=== PATIENT | female | born 1930 | race Caucasian/White ===

== ENCOUNTER 2016-12-04 10:57 | Emergency (ER) | payer MEDICARE ==
[2016-12-04] MEDS ORDERED: Aspirin 81 MG Tab.Chew PO ONE (11:10)
[2016-12-04] MEDS ORDERED: Aspirin 81 MG Tab.Chew ONE (11:11)
--- NOTE | 2016-12-04 11:59 | EDM.PDOC ---
ED HPI GENERAL MEDICAL PROBLEM - General Chief Complaint: Chest Pain Stated Complaint: right arm pain Time Seen by Provider: 12/04/16 11:30 Source of Information: Reports: Patient History Limitations: Reports: No limitations - History of Present Illness INITIAL COMMENTS - FREE TEXT/NARRATIVE: PT STATES SHE WOKE THIS AM WITH PAIN AND NUMBNESS TO RIGHT UPPER EXTREMITY AND RIGHT AXILLA / LAT. ADMITS TO EXCESSIVE USE OF VACUUM LAST EVENING AT HOME. DENIES CP, SOB, BROWN, FACIAL NUMBNESS, N/V/D, FALLS, OR BLURRY VISION. Onset: today Duration: Hour(s): Location: Reports: upper extremity, right Quality: Reports: Ache, Burning Severity: mild Improves with: Reports: Rest Worsens with: Reports: Movement Context: Reports: Activity Associated Symptoms: Reports: no other symptoms. Denies: chest pain, fever/ chills, headaches, nausea/vomiting, shortness of breath, syncope, weakness - Related Data Allergies Allergy/AdvReac Type Severity Reaction Status Date / Time Penicillins Allergy Severe Hives Verified 12/04/16 11:30 Home Meds: Home Meds . [No Known Home Meds] 12/04/16 [History] Past Medical History HEENT History: Reports: Cataract, Hard of hearing, Impaired vision Cardiovascular History: Reports: Blood clots/VTE/DVT, Hypertension, SOB on exertion, Other (see below) Other Cardiovascular History: frequent DVT Respiratory History: Reports: SOB, Other (see below) Other Respiratory History: Ruuny nose and stuffiness due to allergies. Gastrointestinal History: Reports: Chronic constipation, GERD, Hemorrhoids Genitourinary History: Reports: Retention, urinary Musculoskeletal History: Reports: Other (see below) Other Musculoskeletal History: Left shoulder "rotator cuff" slight tear - old injury. 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 Last treated 4 years ago. - Past Surgical History HEENT Surgical History: Reports: Cataract surgery GI Surgical History: Reports: Appendectomy, Colonoscopy Social & Family History - Tobacco Use Smoking Status *Q: Never Smoker Second Hand Smoke Exposure: No - Alcohol Use Days Per Week of Alcohol Use: 0 - Recreational Drug Use Recreational Drug Use: No - Living Situation & Occupation Living situation: Reports: Occupation: retired ED ROS GENERAL - Review of Systems Review Of Systems: ROS reveals no pertinent complaints other than HPI. Constitutional: Reports: no symptoms HEENT: Reports: No symptoms Respiratory: Reports: No Symptoms Cardiovascular: Reports: No symptoms Endocrine: Reports: no symptoms GI/Abdominal: Reports: No symptoms : Reports: no symptoms Musculoskeletal: Reports: arm pain (RIGHT) Skin: Reports: no symptoms Neurological: Reports: No Symptoms. Denies: Dizziness, Headache, Difficulty Walking, Weakness Psychiatric: Reports: No symptoms Hematologic/Lymphatic: Reports: no symptoms Immunologic: Reports: no symptoms ED EXAM, GENERAL - Physical Exam Exam: See Below Exam Limited By: No limitations General Appearance: alert, WD/WN, no apparent distress Eye Exam: bilateral eye: normal inspection Nose: normal inspection, normal mucosa, no blood Throat/Mouth: Normal inspection, Normal oropharynx, No airway compromise Head: atraumatic, normocephalic Neck: normal inspection, supple, non-tender, full range of motion Respiratory/Chest: no respiratory distress, lungs clear, normal breath sounds, no accessory muscle use, chest non-tender Cardiovascular: regular rate, rhythm, no murmur, no rub Peripheral Pulses: 2+: radial (L), radial (R) GI/Abdominal: normal bowel sounds, soft, non tender, no organomegaly, no distention, no abnormal bruit, no mass Back Exam: normal inspection, full range of motion. No: CVA tenderness (L), CVA tenderness (R) Extremities: normal capillary refill, pedal edema (2+ BILAT OF CHRONIC NATURE) Neurological: alert, oriented, CN II-XII intact, normal cognition, no motor/ sensory deficits Psychiatric: normal affect, normal mood Skin Exam: Warm, Dry, Intact, Normal color, No rash Lymphatic: no adenopathy EKG INTERPRETATION EKG Date: 12/04/16 Time: 11:15 Rhythm: NSR [place]: normal P-wave: present QT: prolonged Course - Vital Signs Last Recorded V/S: Last Vital Signs Temp 99.4 F 12/04/16 11:29 Pulse 89 12/04/16 11:29 Resp 14 12/04/16 11:29 BP 131/72 12/04/16 11:29 Pulse Ox 96 12/04/16 11:29 - Orders/Labs/Meds Orders: Active Orders 24 hr Category Date Time Status EKG Documentation Completion [RC] ASDIRECTED Care 12/04/16 11:10 Active CXR [Chest 1V Frontal] [CR] Stat Exams 12/04/16 11:10 Taken COMPREHENSIVE METABOLIC PN,CMP [CHEM] Stat Lab 12/04/16 11:25 Received TROPONIN I [CHEM] Stat Lab 12/04/16 11:25 Received EKG 12 Lead [EK] Routine Ther 12/04/16 11:10 Ordered Labs: Laboratory Tests 12/04/16 Range/Units 11:25 WBC 4.9 L (5.0-10.0) 10^3/uL RBC 2.75 L (3.80-5.50) 10^6/uL Hgb 8.9 L (12.0-16.0) g/dL Hct 26.9 L (37.0-47.0) % MCV 97.7 H (82.0-92.0) fL MCH 32.2 H (27.0-31.0) pg MCHC 32.9 (32.0-36.0) g/dL RDW 15.7 H (11.5-14.5) % Plt Count 208 (150-300) 10^3/uL MPV 6.3 L (7.4-10.4) fL Neut % (Auto) 63.8 (50.0-70.0) % Lymph % (Auto) 27.3 (20.0-40.0) % [place] % (Auto) 7.6 (2.0-8.0) % Eos % (Auto) 0.8 L (1.0-3.0) % Baso % (Auto) 0.5 (0.0-1.0) % Neut # 3.2 (2.5-7.0) 10^3/uL Lymph # 1.3 (1.0-4.0) 10^3/uL [place] # 0.4 (0.1-0.8) 10^3/uL Eos # 0.0 L (0.1-0.3) 10^3/uL Baso # 0.0 (0.0-0.1) 10^3/uL Meds: Medications Discontinued Medications Generic Name Dose Route Start Last Admin Trade Name Andreas PRN Reason Stop Dose Admin Aspirin 324 mg 12/04/16 11:10 12/04/16 11:34 Aspirin PO 12/04/16 11:11 324 mg ONETIME ONE Administration Aspirin Confirm 12/04/16 11:11 12/04/16 11:34 Aspirin Administered 12/04/16 11:12 Not Given Dose 324 mg .ROUTE .STK-MED ONE - Re-Assessments/Exams Free Text/Narrative Re-Assessment/Exam: 12/04/16 12:25 PT AFEBRILE, NONTOXIC APPEARING, NO CP, SOB, BROWN WHILE IN ER. DISCUSSED CASE WITH DR SU. WILL D/C AND F/U IN CLINIC Departure - Departure Time of Disposition: 12:26 Disposition: Home, Self-Care 01 Condition: good Clinical Impression: Radicular pain in right arm Muscle strain of right upper extremity Qualifiers: Encounter type: initial encounter Qualified Code(s): S46.911A - Strain of unspecified muscle, fascia and tendon at shoulder and upper arm level, right arm , initial encounter Forms: ED Department Discharge Additional Instructions: REST / ICE / RECHECK AT CLINIC IN 2-3 DAYS - My Orders Last 24 Hours: My Active Orders 12/04/16 11:10 EKG Documentation Completion [RC] ASDIRECTED CXR [Chest 1V Frontal] [CR] Stat EKG 12 Lead [EK] Routine 12/04/16 11:25 COMPREHENSIVE METABOLIC PN,CMP [CHEM] Stat TROPONIN I [CHEM] Stat - Assessment/Plan Last 24 Hours: My Active Orders 12/04/16 11:10 EKG Documentation Completion [RC] ASDIRECTED CXR [Chest 1V Frontal] [CR] Stat EKG 12 Lead [EK] Routine 12/04/16 11:25 COMPREHENSIVE METABOLIC PN,CMP [CHEM] Stat TROPONIN I [CHEM] Stat Assessment:: RIGHT ARM PAIN / RADICULOPATHY FROM OVEREXERTION Plan: REST / ICE / RECHECK IN CLINIC IN 2 DAYS
[2016-12-04 12:02] LABS: CHLORIDE,CL 109 mmol/L (98-115); SODIUM,NA 144 mmol/L (136-145)
[2016-12-04 12:03] VITALS: BP 109/51
== END 2016-12-04 12:45 | disposition home or self-care (01) ==
LOC: KA.ED 10:57
DX: S46.911A Strain of unspecified muscle, fascia and tendon at shoulder and upper arm level, right arm, initial encounter (principal); E03.9 Hypothyroidism, unspecified; X58.XXXA Exposure to other specified factors, initial encounter; Z88.0 Allergy status to penicillin
CPT/HCPCS: 36415; 71010; 80053; 84484; 85025; 93005; 99283; 99284; A9270-GY

== ENCOUNTER 2017-09-12 15:15 | Inpatient (IN) | payer MEDICARE ==
[2017-09-12 15:47] LABS: CHLORIDE,CL 107 mmol/L (98-115); SODIUM,NA 139 mmol/L (136-145)
[2017-09-12] MEDS ORDERED: Atropine/Diphenoxylate 0.025-2.5 MG Tab PO PRN (17:55)
[2017-09-12] MEDS ORDERED: Sodium Chloride 0.9% 250 ML ONE (19:42)
[2017-09-12] MEDS ORDERED: Acetaminophen 325 MG Tab PO PRN (20:15)
[2017-09-12] MEDS: Latanoprost 0.005% Ophth Soln 2.5 ML Bottle EYEBOTH SCH (20:34)
[2017-09-12] MEDS: Dorzolamide/Timolol 2%-0.5% Ophth Soln 10 ML Bottle EYEBOTH SCH (21:00)
[2017-09-13] MEDS ORDERED: Sodium Chloride 0.9% 1,000 ML IV SCH (08:30)
--- NOTE | 2017-09-13 08:43 | PCM.PN ---
- General Info Date of Service: 09/13/17 Admission Dx/Problem (Free Text): Anemia, renal insufficiency, multiple myeloma - Review of Systems Systems Review Comment:: Sophie is seen today on observation rounds. She was admitted on 09/12/17 from clinic due to diarrhea and feeling dehydrated. BUn was 60, creatinine was 2.69 , Hemoglobin was 5.1. She states she had an incontinent stool at [facility] on the day of admission. She was given 2 units PRBC's and a 250 mL bolus of normal saline. This morning her labs shows a BUN still at 60 and a creatining of 2.74 , hemoglobin is 7.7. She states she has not had a bowel movement since she has been here. Sophie decided over a year ago so stop doing treatment for her multiple myeloma. Last labs we have for her were a BUN of 28 and a creatinine of 1.56 She does have a hx of renal insufficiency but she has not been seen since June of 2016 stating "I was just doing so well". She feels a lot better today. She is concerned about a cough that she has and that she has been slightly more SOB recently. - Patient Data Vitals - Most Recent: Last Vital Signs Temp 98.9 F 09/13/17 06:09 Pulse 73 09/13/17 06:09 Resp 18 09/13/17 06:09 BP 129/76 09/13/17 06:09 Pulse Ox 95 09/13/17 06:09 Weight - Most Recent: 120 lb I&O - Last 24 Hours: Intake & Output 09/12/17 09/13/17 09/13/17 22:59 06:59 14:59 Intake Total 532 510 Output Total 50 400 Balance 482 110 Lab Results Last 24 Hours: Laboratory Results - last 24 hr 09/12/17 09/12/17 09/12/17 Range/Units 15:23 15:23 15:23 WBC 5.3 (5.0-10.0) 10^3/uL RBC 1.54 L (3.80-5.50) 10^6/uL Hgb 5.1 L* (12.0-16.0) g/dL Hct 15.3 L* (37.0-47.0) % MCV 98.9 H (82.0-92.0) fL MCH 33.2 H (27.0-31.0) pg MCHC 33.5 (32.0-36.0) g/dL RDW 16.8 H (11.5-14.5) % Plt Count 210 (150-300) 10^3/uL MPV 6.6 L (7.4-10.4) fL Neut % (Auto) 73.9 H (50.0-70.0) % Lymph % (Auto) 18.1 L (20.0-40.0) % [place] % (Auto) 6.6 (2.0-8.0) % Eos % (Auto) 1.1 (1.0-3.0) % Baso % (Auto) 0.3 (0.0-1.0) % Neut # (Auto) 3.9 (2.5-7.0) 10^3/uL Lymph # (Auto) 1.0 (1.0-4.0) 10^3/uL [place] # (Auto) 0.3 (0.1-0.8) 10^3/uL Eos # (Auto) 0.1 (0.1-0.3) 10^3/uL Baso # (Auto) 0.0 (0.0-0.1) 10^3/uL Sodium 139 (136-145) mmol/L Potassium 4.9 (3.3-5.3) mmol/L Chloride 107 (98-115) mmol/L Carbon Dioxide 18.8 L (21.0-32.0) mmol/L BUN 60 H* (6-25) mg/dL Creatinine 2.69 H (0.51-1.17) mg/dL Est Cr Clr Drug Dosing TNP Estimated GFR (MDRD) 17 mL/min Glucose 100 (70-110) mg/dL Calcium 9.7 (8.7-10.3) mg/dL Total Bilirubin 1.2 H (0.2-1.0) mg/dL AST 17 (15-37) U/L ALT 12 (12-78) U/L Alkaline Phosphatase 140 H (46-116) IU/L Total Protein 7.1 (6.4-8.2) g/dL Albumin 3.65 (3.00-4.80) g/dL Specimen Type Urine Color (YELLOW) Urine Appearance (CLEAR) Urine pH (5.0-9.0) Ur Specific [place] (1.005-1.030) Urine Protein (NEGATIVE) mg/dL Urine Glucose (UA) (NEGATIVE) mg/dL Urine Ketones (NEGATIVE) mg/dL Urine Occult Blood (NEGATIVE) Urine Nitrite (NEGATIVE) Urine Bilirubin (NEGATIVE) Urine Urobilinogen (0.2-1.0) E.U./dL Ur Leukocyte Esterase (NEGATIVE) Urine RBC /HPF Urine WBC /HPF Ur Epithelial Cells /LPF Urine Bacteria (NONE TO FEW) /HPF Blood Type A POSITIVE Gel Antibody Screen Negative Crossmatch See Detail 09/12/17 09/13/17 09/13/17 Range/Units 15:50 07:10 07:10 WBC 4.5 L (5.0-10.0) 10^3/uL RBC 2.56 L (3.80-5.50) 10^6/uL Hgb 7.7 L (12.0-16.0) g/dL Hct 23.7 L (37.0-47.0) % MCV 92.6 H (82.0-92.0) fL MCH 30.0 (27.0-31.0) pg MCHC 32.4 (32.0-36.0) g/dL RDW 16.6 H (11.5-14.5) % Plt Count 187 (150-300) 10^3/uL MPV 7.1 L (7.4-10.4) fL Neut % (Auto) 79.9 H (50.0-70.0) % Lymph % (Auto) 13.1 L (20.0-40.0) % [place] % (Auto) 5.5 (2.0-8.0) % Eos % (Auto) 1.2 (1.0-3.0) % Baso % (Auto) 0.3 (0.0-1.0) % Neut # (Auto) 3.6 (2.5-7.0) 10^3/uL Lymph # (Auto) 0.6 L (1.0-4.0) 10^3/uL [place] # (Auto) 0.2 (0.1-0.8) 10^3/uL Eos # (Auto) 0.1 (0.1-0.3) 10^3/uL Baso # (Auto) 0.0 (0.0-0.1) 10^3/uL Sodium 138 (136-145) mmol/L Potassium 4.2 (3.3-5.3) mmol/L Chloride 106 (98-115) mmol/L Carbon Dioxide 20.3 L (21.0-32.0) mmol/L BUN 60 H* (6-25) mg/dL Creatinine 2.74 H (0.51-1.17) mg/dL Est Cr Clr Drug Dosing 10.19 Estimated GFR (MDRD) 16 mL/min Glucose 95 (70-110) mg/dL Calcium 8.9 (8.7-10.3) mg/dL Total Bilirubin 1.3 H (0.2-1.0) mg/dL AST 12 L (15-37) U/L ALT 13 (12-78) U/L Alkaline Phosphatase 129 H (46-116) IU/L Total Protein 6.3 L (6.4-8.2) g/dL Albumin 3.15 (3.00-4.80) g/dL Specimen Type Urinvoid Urine Color Yellow (YELLOW) Urine Appearance Slightly cloudy H (CLEAR) Urine pH 5.5 (5.0-9.0) Ur Specific [place] 1.015 (1.005-1.030) Urine Protein 100 H (NEGATIVE) mg/dL Urine Glucose (UA) Negative (NEGATIVE) mg/dL Urine Ketones Negative (NEGATIVE) mg/dL Urine Occult Blood Small H (NEGATIVE) Urine Nitrite Negative (NEGATIVE) Urine Bilirubin Negative (NEGATIVE) Urine Urobilinogen 0.2 (0.2-1.0) E.U./dL Ur Leukocyte Esterase Moderate H (NEGATIVE) Urine RBC 5-10 H /HPF Urine WBC >100 H /HPF Ur Epithelial Cells Few /LPF Urine Bacteria Many H (NONE TO FEW) /HPF Blood Type Gel Antibody Screen Crossmatch Med Orders - Current: Current Medications Acetaminophen (Tylenol) 650 mg PO Q4H PRN PRN Reason: Pain Last Admin: 09/12/17 20:32 Dose: 650 mg Diphenoxylate HCl/Atropine (Lomotil 0.025-2.5 Mg) 1 tab PO QID PRN PRN Reason: Diarrhea Dorzolamide/Timolol (Cosopt 2%-0.5% Ophth Soln) 0 ml EYEBOTH BID RAUL Last Admin: 09/12/17 21:00 Dose: Not Given Ciprofloxacin/Dextrose 200 mg/ (Premix) 100 mls @ 200 mls/hr IV Q12H RAUL Sodium Chloride (Normal Saline) 1,000 mls @ 100 mls/hr IV ASDIRECTED [facility] Latanoprost (Xalatan 0.005% Ophth Soln) 0 ml EYEBOTH BEDTIME [facility] Last Admin: 09/12/17 20:34 Dose: 1 drop Discontinued Medications Sodium Chloride (Normal Saline) Confirm Administered Dose 250 mls @ as directed .ROUTE .STK-MED ONE Stop: 09/12/17 19:43 Last Admin: 09/12/17 20:15 Dose: 250 ml - Exam General: Alert, Oriented, Cooperative, No Acute Distress Lungs: Clear to Auscultation, Normal Respiratory Effort GI/Abdominal Exam: Normal Bowel Sounds Extremities: Normal Inspection - Problem List & Annotations (1) Anemia SNOMED Code(s): 519494159 Code(s): D64.9 - ANEMIA, UNSPECIFIED Status: Acute Current Visit: Yes Qualifiers: Anemia type: bone marrow failure (2) Chronic kidney disease SNOMED Code(s): 616300147 Code(s): N18.9 - CHRONIC KIDNEY DISEASE, UNSPECIFIED Status: Chronic Current Visit: No (3) Multiple myeloma SNOMED Code(s): 186251717 Code(s): C90.00 - MULTIPLE MYELOMA NOT HAVING ACHIEVED REMISSION Status: Chronic Current Visit: No - Problem List Review Problem List Initiated/Reviewed/Updated: Yes - My Orders Last 24 Hours: My Active Orders 09/12/17 20:15 Acetaminophen [Tylenol] 650 mg PO Q4H PRN 09/13/17 08:23 CULTURE URINE [RM] Routine 09/13/17 08:24 Admission Status [Patient Status] [ADT] Routine 09/13/17 08:30 Ciprofloxacin in D5W [Cipro in D5W 400 MG/200 ML] 200 mg Premix Bag 1 bag IV Q12H Sodium Chloride 0.9% @ 100 MLS/HR(1,000ml) Sodium Chloride 0.9% [Normal Saline] 1,000 ml IV ASDIRECTED - Assessment Assessment:: Anemia CKD UTI Multiple Myeloma Cough - Plan Plan:: Anemia. Improved following PRBC transfusion on 09/12. Daily labs. CKD. IVF's at 100 cc per hour, daily labs. 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 Daily labs. She has declined any treatment for her multiple myeloma. She states she would not do dialysis. UTI. Urine culture ordered today, will start ciprofloxacin 200 mg IM q 12 hours. Multiple Myeloma. No intervention per patient wishes. Cough. CXR today. Lungs clear on auscultation. I did switch her to inpatient status today.
[2017-09-13] MEDS: Ciprofloxacin in D5W 200 MG in Premix Bag 1 BAG IV SCH ×2 (09:31)
[2017-09-13] MEDS: Dorzolamide/Timolol 2%-0.5% Ophth Soln 10 ML Bottle EYEBOTH SCH ×2 (09:34→20:53)
[2017-09-13] MEDS: Latanoprost 0.005% Ophth Soln 2.5 ML Bottle EYEBOTH SCH (20:56)
[2017-09-14 06:09] VITALS: BP 113/67
[2017-09-14] MEDS: Dorzolamide/Timolol 2%-0.5% Ophth Soln 10 ML Bottle EYEBOTH SCH (09:29)
[2017-09-14] MEDS: Ciprofloxacin in D5W 200 MG in Premix Bag 1 BAG IV SCH ×2 (09:29)
--- NOTE | 2017-09-14 10:26 | PCM.DCSUM1 ---
Discharge Summary - Hospital Course HPI Initial Comments: Sophie was admitted on 09/12/17 from clinic due to diarrhea and feeling dehydrated. BUn was 60, creatinine was 2.69, Hemoglobin was 5.1. She states she had an incontinent stool at [employer] on the day of admission. She was given 2 units PRBC's and a 250 mL bolus of normal saline. Sophie remained hospitalized due to no improvement in her renal function. Sophie received 1 L NS and Cr today improved to 2.5. Sophie is being treated for UTI awaiting cultures, but due to previous cultures being cipro resistant UTI, i will change her antibiotic to septra DS BID x 10 days. Sophie decided over a year ago so stop doing treatment for her multiple myeloma. Last labs we have for her were a BUN of 28 and a creatinine of 1.56 She does have a hx of renal insufficiency but she has not been seen since June of 2016 stating "I was just doing so well". She feels a lot better today. Pt to follow up for repeat lab work next week in clinic. - Discharge Data Discharge Date: 09/14/17 Discharge Disposition: Home, Self-Care 01 Condition: Good - Discharge Diagnosis/Problem(s) (1) Anemia SNOMED Code(s): 289967361 ICD Code: D64.9 - ANEMIA, UNSPECIFIED Status: Acute Current Visit: Yes Qualifiers: Anemia type: bone marrow failure (2) Chronic kidney disease SNOMED Code(s): 041696983 ICD Code: N18.9 - CHRONIC KIDNEY DISEASE, UNSPECIFIED Status: Chronic Current Visit: No - Patient Instructions Diet: Renal Diet Activity: As Tolerated Showering/Bathing: January Shower Notify Provider of: Fever - Discharge Plan Prescriptions/Med Rec: Sulfamethoxazole/Trimethoprim [Septra DS] 1 tab PO BID #20 tablet Home Medications: Home Meds Dorzolamide HCl/Timolol Maleat [Dorzolamide-Timolol Eye Drops] 1 drop EYEBOTH BID 09/12/17 [History] Latanoprost [Latanoprost] 1 drop EYEBOTH BEDTIME 09/12/17 [History] Sulfamethoxazole/Trimethoprim [Septra DS] 1 tab PO BID #20 tablet 09/14/17 [Rx] Referrals: Ashanti Torres MD [Primary Care Provider] - - Discharge Summary/Plan Comment DC Time >30 min.: No Discharge Summary/Plan Comment: 1. septra DS PO BID x 10 days for UTI 2. push oral fluids for CKD 3. follow up in clinic this week for recheck of labs and follow up- Anemia/BUN/ Cr 4. return to ER for worsening symptoms - General Info Date of Service: 09/14/17 Admission Dx/Problem (Free Text: Anemia, renal insufficiency, multiple myeloma Functional Status: Reports: Pain Controlled - Review of Systems General: Reports: No Symptoms HEENT: Reports: No Symptoms Pulmonary: Reports: No Symptoms Cardiovascular: Reports: No Symptoms Gastrointestinal: Reports: No Symptoms Genitourinary: Reports: No Symptoms Musculoskeletal: Reports: No Symptoms Skin: Reports: No Symptoms Neurological: Reports: No Symptoms Psychiatric: Reports: No Symptoms - Patient Data Vitals - Most Recent: Last Vital Signs Temp 36.9 C 09/14/17 06:08 Pulse 75 09/14/17 06:08 Resp 20 09/14/17 06:08 BP 113/67 09/14/17 06:08 Pulse Ox 96 09/14/17 06:08 Weight - Most Recent: 54.34 kg I&O - Last 24 hours: Intake & Output 09/13/17 09/14/17 09/14/17 22:59 06:59 14:59 Intake Total 1090 0 130 Output Total 800 800 Balance 290 -800 130 Lab Results - Last 24 hrs: Laboratory Results - last 24 hr 09/14/17 09/14/17 Range/Units 07:04 07:04 WBC 4.8 L (5.0-10.0) 10^3/uL RBC 2.56 L (3.80-5.50) 10^6/uL Hgb 7.7 L (12.0-16.0) g/dL Hct 24.1 L (37.0-47.0) % MCV 94.0 H (82.0-92.0) fL MCH 30.1 (27.0-31.0) pg MCHC 32.0 (32.0-36.0) g/dL RDW 16.5 H (11.5-14.5) % Plt Count 164 (150-300) 10^3/uL MPV 6.9 L (7.4-10.4) fL Neut % (Auto) 73.9 H (50.0-70.0) % Lymph % (Auto) 19.0 L (20.0-40.0) % [place] % (Auto) 5.9 (2.0-8.0) % Eos % (Auto) 1.0 (1.0-3.0) % Baso % (Auto) 0.2 (0.0-1.0) % Neut # (Auto) 3.6 (2.5-7.0) 10^3/uL Lymph # (Auto) 0.9 L (1.0-4.0) 10^3/uL [place] # (Auto) 0.3 (0.1-0.8) 10^3/uL Eos # (Auto) 0.0 L (0.1-0.3) 10^3/uL Baso # (Auto) 0.0 (0.0-0.1) 10^3/uL Sodium 140 (136-145) mmol/L Potassium 4.0 (3.3-5.3) mmol/L Chloride 107 (98-115) mmol/L Carbon Dioxide 18.6 L (21.0-32.0) mmol/L BUN 49 H (6-25) mg/dL Creatinine 2.53 H (0.51-1.17) mg/dL Est Cr Clr Drug Dosing 11.04 mL/min Estimated GFR (MDRD) 18 mL/min Glucose 96 (70-110) mg/dL Calcium 8.8 (8.7-10.3) mg/dL B-Natriuretic Peptide 294 H (0-100) pg/mL [id number] Results - Last 24 hrs: Microbiology 09/12/17 15:50 Urine Culture - Preliminary Urine, Voided Med Orders - Current: Current Medications Acetaminophen (Tylenol) 650 mg PO Q4H PRN PRN Reason: Pain Last Admin: 09/12/17 20:32 Dose: 650 mg Diphenoxylate HCl/Atropine (Lomotil 0.025-2.5 Mg) 1 tab PO QID PRN PRN Reason: Diarrhea Dorzolamide/Timolol (Cosopt 2%-0.5% Ophth Soln) 0 ml EYEBOTH BID [facility] Last Admin: 09/14/17 09:29 Dose: 1 drop Ciprofloxacin/Dextrose 200 mg/ (Premix) 100 mls @ 200 mls/hr IV Q24H [facility] Last Admin: 09/14/17 09:29 Dose: 200 mls/hr Latanoprost (Xalatan 0.005% Ophth Soln) 0 ml EYEBOTH BEDTIME [facility] Last Admin: 09/13/17 20:56 Dose: 1 drop Discontinued Medications Sodium Chloride (Normal Saline) Confirm Administered Dose 250 mls @ as directed .ROUTE .STK-MED ONE Stop: 09/12/17 19:43 Last Admin: 09/12/17 20:15 Dose: 250 ml Sodium Chloride (Normal Saline) 1,000 mls @ 100 mls/hr IV ASDIRECTED [facility] Stop: 09/13/17 19:30 Last Admin: 09/13/17 09:27 Dose: 100 mls/hr - Exam General: Reports: Alert, Oriented HEENT: Reports: Pupils Equal, Pupils Reactive, EOMI, Mucous Membr. Moist/[place] Neck: Reports: Supple Lungs: Reports: Clear to Auscultation, Normal Respiratory Effort Cardiovascular: Reports: Regular Rate, Regular Rhythm GI/Abdominal Exam: Normal Bowel Sounds, Soft, Non-Tender, No Organomegaly, No Distention, No Abnormal Bruit, No Mass, Pelvis Stable Back Exam: Reports: Normal Inspection, Full Range of Motion Extremities: Normal Inspection, Normal Range of Motion, Non-Tender, No Pedal Edema, Normal Capillary Refill Skin: Reports: Warm, Dry, Intact Wound/Incisions: Reports: Healing Well Neurological: Reports: No New Focal Deficit Psy/Mental Status: Reports: Alert, Normal Affect, Normal Mood *Q Meaningful Use (DIS) - VTE *Q VTE Criteria *Q: - Stroke *Q Stroke Criteria *Q: - AMI *Q AMI Criteria *Q:
== END 2017-09-14 11:00 | disposition home or self-care (01) | DRG 392 ==
LOC: KA.OC 15:15 → KA.MS 16:00 → OBSVTOIN 09-13 08:24
PROVIDERS: ATTEND Internal Medicine
DX: R53.1 Weakness (principal); R19.7 Diarrhea, unspecified; N39.0 Urinary tract infection, site not specified; N28.9 Disorder of kidney and ureter, unspecified; C90.00 Multiple myeloma not having achieved remission; E86.0 Dehydration; N18.9 Chronic kidney disease, unspecified; D64.9 Anemia, unspecified; R05 Cough; Z88.0 Allergy status to penicillin; Z79.899 Other long term (current) drug therapy; Z87.891 Personal history of nicotine dependence
CPT/HCPCS: 36415 ×2; 36430; 80053 ×2; 81001; 85025 ×2; 86850; 86900; 86901; 86920; 86922; A9270 ×2; J7050; P9016 ×2; 71020; 80048; 83880; 87086; 87088; 87186; G0378; G0379; J0744; J7030

== ENCOUNTER 2017-11-17 12:42 | Emergency (ER) | payer MEDICARE ==
[2017-11-17] MEDS ORDERED: Ketorolac 30 MG/ML SDV IM ONE (13:03)
[2017-11-17] MEDS ORDERED: Acetaminophen/HYDROcodone 325-5 MG Tab PO ONE ×3 (13:03→15:10)
--- NOTE | 2017-11-17 13:28 | EDM.PDOC ---
ED HPI GENERAL MEDICAL PROBLEM - General Chief Complaint: Back Pain or Injury Stated Complaint: BACK PAIN Time Seen by Provider: 11/17/17 13:02 Source of Information: Reports: Patient History Limitations: Reports: No Limitations - History of Present Illness INITIAL COMMENTS - FREE TEXT/NARRATIVE: PATIENT IS AN 87-YEAR-OLD FEMALE WHO PRESENTS TO THE EMERGENCY DEPARTMENT THIS AFTERNOON WITH COMPLAINT OF BACK PAIN. PATIENT STATES THAT BACK PAIN BEGAN ON AND WAS INITIALLY ISOLATED TO LOW BACK. SHE STATES IT BEGAN WHILE SHE WAS IN A SEATED POSITION AND DENIES ANY FALL, OVEREXERTION, OR TRAUMA. PAIN PROGRESSED DAILY AND NOW PAIN CONTINUES UP INTO UPPER BACK AND NECK. PATIENT DID HAVE A UTI 3 WEEKS AGO AND WAS ON ANTIBIOTICS. PATIENT DENIES CHEST PAIN, SHORTNESS OF BREATH, HEADACHE, ABDOMINAL PAIN, DYSURIA, PAIN RADIATING TO LOWER EXTREMITIES, OR UPPER RESPIRATORY SYMPTOMS. Onset: Gradual Onset Date: 11/14/17 Duration: Day(s): Location: Reports: Back (INITIALLY STARTED LOWER BACK AND NOW PROGRESSING TO MID UPPER BACK.) Quality: Reports: Ache, Sharp Severity: Moderate Improves with: Reports: None Worsens with: Reports: Movement Context: Reports: Other. Denies: Trauma Associated Symptoms: Reports: No Other Symptoms. Denies: Chest Pain, Cough, Fever/Chills, Headaches, Nausea/Vomiting, Shortness of Breath - Related Data Allergies Allergy/AdvReac Type Severity Reaction Status Date / Time Penicillins Allergy Severe Hives Verified 11/17/17 13:08 Home Meds: Home Meds Dorzolamide HCl/Timolol Maleat [Dorzolamide-Timolol Eye Drops] 1 drop EYEBOTH BID 09/12/17 [History] Latanoprost [Latanoprost] 1 drop EYEBOTH BEDTIME 09/12/17 [History] Past Medical History HEENT History: Reports: Cataract, Hard of Hearing, Impaired Vision Cardiovascular History: Reports: Blood Clots/VTE/DVT, Hypertension, SOB on Exertion, Other (See Below) Other Cardiovascular History: frequent DVT Respiratory History: Reports: SOB, Other (See Below) Other Respiratory History: Ruuny nose and stuffiness due to allergies. Gastrointestinal History: Reports: Chronic Constipation, Diverticulosis, GERD, Hemorrhoids Genitourinary History: Reports: Retention, Urinary Musculoskeletal History: Reports: Back Pain, Chronic, Fibromyalgia Other Musculoskeletal History: Left shoulder "rotator cuff" slight tear - old injury. 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, bilaterally Neurological History: Reports: Neuropathy, Peripheral, Other (See Below) Other Neuro History: idiopathic tremors Psychiatric History: Reports: Depression Endocrine/Metabolic History: Reports: Hypothyroidism Hematologic History: Reports: Anemia, Anticoagulation Therapy, Blood Transfusion (s) Oncologic (Cancer) History: Reports: Basal Cell Carcinoma, Other (See Below) Other Oncologic History: multiple myeloma Dermatologic History: Reports: Other (See Below) Other Dermatologic History: face lesions - Infectious Disease History Infectious Disease History: Reports: Influenza, Measles - Past Surgical History HEENT Surgical History: Reports: Cataract Surgery Oncologic Surgical History: Reports: Other (See Below) Other Oncologic Surgeries/Procedures: spinal tap Social & Family History - Tobacco Use Smoking Status *Q: Never Smoker Second Hand Smoke Exposure: No - Caffeine Use Caffeine Use: Reports: Coffee, Tea - Alcohol Use Days Per Week of Alcohol Use: 0 - Recreational Drug Use Recreational Drug Use: No - Living Situation & Occupation Living situation: Reports: Occupation: Retired ED ROS GENERAL - Review of Systems Review Of Systems: ROS reveals no pertinent complaints other than HPI. Constitutional: Reports: No Symptoms. Denies: Fever HEENT: Reports: No Symptoms Respiratory: Reports: No Symptoms. Denies: Shortness of Breath Cardiovascular: Reports: No Symptoms. Denies: Chest Pain Endocrine: Reports: No Symptoms GI/Abdominal: Reports: No Symptoms. Denies: Abdominal Pain : Reports: No Symptoms Musculoskeletal: Reports: Back Pain. Denies: Leg Pain Skin: Reports: No Symptoms Neurological: Reports: No Symptoms Psychiatric: Reports: No Symptoms Hematologic/Lymphatic: Reports: No Symptoms Immunologic: Reports: No Symptoms ED EXAM,LOWER BACK PAIN/INJURY - Physical Exam Exam: See Below Exam Limited By: No Limitations General Appearance: Alert, WD/WN Eye Exam: Bilateral Eye: Normal Inspection Nose: Normal Inspection, Normal Mucosa, No Blood Throat/Mouth: Normal Inspection, Normal Oropharynx, No Airway Compromise Head: Atraumatic, Normocephalic Neck: Normal Inspection, Supple, Limited Range of Motion (SECONDARY TO DISCOMFORT) Respiratory/Chest: No Respiratory Distress, Lungs Clear, Normal Breath Sounds, No Accessory Muscle Use, Chest Non-Tender Cardiovascular: Regular Rate, Rhythm, No Murmur GI/Abdominal: Normal Bowel Sounds, Soft, Non-Tender, No Organomegaly, No Distention, No Abnormal Bruit, No Mass. No: Tender Back Exam: Paraspinal Tenderness (LOW BACK, EXTENDING UP TO MID BACK). No: CVA Tenderness (L), CVA Tenderness (R), Vertebral Tenderness Extremities: Normal Inspection, No Pedal Edema, Normal Capillary Refill Neurological: Alert, Normal Dorsiflexion, Oriented x 3 Psychiatric: Normal Affect, Normal Mood Skin Exam: Warm, Dry, Intact, Normal Color, No Rash Course - Orders/Labs/Meds Orders: Active Orders 24 hr Category Date Time Status Chest 1V Frontal [CR] Stat Exams 11/17/17 13:03 Ordered UA W/MICROSCOPIC [URIN] Stat Lab 11/17/17 13:03 Ordered Meds: Medications Discontinued Medications Generic Name Dose Route Start Last Admin Trade Name Ryanq PRN Reason Stop Dose Admin Hydrocodone Bitart/Acetaminophen 1 tab 11/17/17 13:03 11/17/17 13:12 [place] 325-5 Mg PO 11/17/17 13:04 1 tab ONETIME ONE Administration Ketorolac Tromethamine 30 mg 11/17/17 13:03 11/17/17 13:13 Toradol IM 11/17/17 13:04 30 mg ONETIME ONE Administration - Radiology Interpretation Free Text/Narrative:: Chest x-ray shows no acute cardiopulmonary process - Re-Assessments/Exams Free Text/Narrative Re-Assessment/Exam: 11/17/17 15:02 Patient afebrile, nontoxic appearing, vital signs stable, pain relieved. at bedside. Patient denies chest pain, shortness of breath, abdominal pain, headache, or radiation to legs. Departure - Departure Time of Disposition: 15:04 Disposition: Home, Self-Care 01 Condition: Good Clinical Impression: Back pain Qualifiers: Back pain location: low back pain Chronicity: chronic Back pain laterality: bilateral Sciatica presence: without sciatica Qualified Code(s): M54.5 - Low back pain; G89.29 - Other chronic pain; G89.29 - Other chronic pain - Discharge Information Instructions: Muscle Strain, [id number], Back Pain, Adult, [id number], Pain Medicine Instructions, [id number] Referrals: Ashanti Torres MD [Primary Care Provider] - Forms: ED Department Discharge Additional Instructions: Follow-up with Dr. Ocasio in one to 2 days. - My Orders Last 24 Hours: My Active Orders 11/17/17 13:03 Chest 1V Frontal [CR] Stat UA W/MICROSCOPIC [URIN] Stat - Assessment/Plan Last 24 Hours: My Active Orders 11/17/17 13:03 Chest 1V Frontal [CR] Stat UA W/MICROSCOPIC [URIN] Stat Assessment:: Back pain, muscle strain Plan: Follow-up at [facility]
[2017-11-17] MEDS ORDERED: Acetaminophen/HYDROcodone 325-5 MG Tab ONE (14:53)
[2017-11-17 17:51] VITALS: BP 129/78
== END 2017-11-17 15:15 | disposition home or self-care (01) ==
LOC: KA.ED 12:42
DX: S39.012A Strain of muscle, fascia and tendon of lower back, initial encounter (principal); I10 Essential (primary) hypertension; G89.29 Other chronic pain; Z88.0 Allergy status to penicillin; X58.XXXA Exposure to other specified factors, initial encounter
CPT/HCPCS: 71045; 81001; 96372; 99283; A9270-GY; J1885

== ENCOUNTER 2017-11-18 09:15 | Inpatient (IN) | payer MEDICARE ==
[2017-11-18] MEDS ORDERED: Acetaminophen/HYDROcodone 325-5 MG Tab PO ONE (10:36)
--- NOTE | 2017-11-18 10:48 | EDM.PDOC ---
ED HPI GENERAL MEDICAL PROBLEM - General Chief Complaint: Back Pain or Injury Stated Complaint: sdifficulty breathing Time Seen by Provider: 11/18/17 10:35 Source of Information: Reports: Patient History Limitations: Reports: No Limitations - History of Present Illness INITIAL COMMENTS - FREE TEXT/NARRATIVE: Patient is an 87-year-old female who presents to the emergency department this morning with a complaint of upper back pain. Patient was seen in the emergency Department yesterday for same symptoms. Symptoms did resolve while in ER following pain medication. Chest x-ray taken yesterday showed no cardiopulmonary process. Patient states that pain has diminished elsewhere, but now is located in left upper back only. Patient says that when she takes a deep breath it does hurt. Patient denies chest pain, abdominal pain, nausea, vomiting, diarrhea, headache, or any trauma. Onset: Gradual Duration: Chronic Location: Reports: Back Quality: Reports: Sharp Severity: Moderate Improves with: Reports: Medication Worsens with: Reports: Movement Context: Denies: Activity, Exercise, Lifting, Sick Contact, Trauma Associated Symptoms: Reports: No Other Symptoms Treatments DIRECTOR ORANGE: Reports: Other Medication(s) Other Treatments DIRECTOR ORANGE: hydrocodone Left Posterior Chest Pain Score (Numeric/FACES): 7 - Related Data Allergies Allergy/AdvReac Type Severity Reaction Status Date / Time Penicillins Allergy Severe Hives Verified 11/18/17 09:44 Home Meds: Home Meds Dorzolamide HCl/Timolol Maleat [Dorzolamide-Timolol Eye Drops] 1 drop EYEBOTH BID 09/12/17 [History] Latanoprost [Latanoprost] 1 drop EYEBOTH BEDTIME 09/12/17 [History] Hydrocodone/Acetaminophen [Hydrocodon-Acetaminophen 5-325] 5 mg PO Q6H PRN 11/18 [History] Past Medical History HEENT History: Reports: Cataract, Hard of Hearing, Impaired Vision Cardiovascular History: Reports: Blood Clots/VTE/DVT, Hypertension, SOB on Exertion, Other (See Below) Other Cardiovascular History: frequent DVT Respiratory History: Reports: SOB, Other (See Below) Other Respiratory History: Ruuny nose and stuffiness due to allergies. Gastrointestinal History: Reports: Chronic Constipation, Diverticulosis, GERD, Hemorrhoids Genitourinary History: Reports: Retention, Urinary [employer] History: Reports: Musculoskeletal History: Reports: Back Pain, Chronic, Fibromyalgia Other Musculoskeletal History: Left shoulder "rotator cuff" slight tear - old injury. 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, bilaterally Neurological History: Reports: Neuropathy, Peripheral, Other (See Below) Other Neuro History: idiopathic tremors Psychiatric History: Reports: Depression Endocrine/Metabolic History: Reports: Hypothyroidism Hematologic History: Reports: Anemia, Anticoagulation Therapy, Blood Transfusion (s) Oncologic (Cancer) History: Reports: Basal Cell Carcinoma, Other (See Below) Other Oncologic History: multiple myeloma Dermatologic History: Reports: Other (See Below) Other Dermatologic History: face lesions - Infectious Disease History Infectious Disease History: Reports: Measles, Mumps - Past Surgical History HEENT Surgical History: Reports: Cataract Surgery Oncologic Surgical History: Reports: Other (See Below) Other Oncologic Surgeries/Procedures: spinal tap Social & Family History - Family History Family Medical History: Noncontributory - Tobacco Use Smoking Status *Q: Never Smoker Second Hand Smoke Exposure: No - Caffeine Use Caffeine Use: Reports: Coffee, Tea - Alcohol Use Days Per Week of Alcohol Use: 0 - Recreational Drug Use Recreational Drug Use: No - Living Situation & Occupation Living situation: Reports: Occupation: Retired ED ROS GENERAL - Review of Systems Review Of Systems: ROS reveals no pertinent complaints other than HPI. Constitutional: Reports: Weakness, Fatigue HEENT: Reports: No Symptoms Respiratory: Reports: No Symptoms Cardiovascular: Reports: No Symptoms Endocrine: Reports: No Symptoms GI/Abdominal: Reports: No Symptoms : Reports: No Symptoms Musculoskeletal: Reports: Back Pain (Left thoracic para vertebral) Skin: Reports: No Symptoms Neurological: Reports: No Symptoms Psychiatric: Reports: No Symptoms Hematologic/Lymphatic: Reports: No Symptoms Immunologic: Reports: No Symptoms ED EXAM, UPPER BACK/NECK PAIN - Physical Exam Exam: See Below Exam Limited By: No Limitations General Appearance: Alert, WD/WN, Mild Distress Eye Exam: Bilateral Eye: Normal Inspection Nose Exam: Normal Inspection, Normal Mucousa, No Blood Throat/Mouth Exam: Normal Inspection, Normal Oropharynx, No Airway Compromise Head Exam: Atraumatic, Normocephalic Neck Exam: Non-Tender, Full Range of Motion, Normal Alignment, Normal Inspection Cardiovascular/Respiratory: Regular Rate, Rhythm GI/Abdominal: Normal Bowel Sounds, Soft, Non-Tender Back Exam: Normal Inspection, Full Range of Motion Extremities: Normal Inspection, Pedal Edema (Of chronic nature) Neurologic: Normal Mood/Affect, Oriented x 3 Psychiatric: Normal Affect, Normal Mood Skin Exam: Normal Color, Warm/Dry EKG INTERPRETATION EKG Date: 11/18/17 Time: 09:50 Rhythm: Other (Sinus rhythm) [place]: Normal QRS: Normal ST-T: Normal QT: Normal Comparison: No Change Course - Vital Signs Last Recorded V/S: Last Vital Signs Temp 98.4 F 11/18/17 09:43 Pulse 63 11/18/17 10:35 Resp 20 11/18/17 10:35 BP 138/55 L 11/18/17 10:35 Pulse Ox 100 11/18/17 10:38 - Orders/Labs/Meds Orders: Active Orders 24 hr Category Date Time Status EKG Documentation Completion [RC] ASDIRECTED Care 11/18/17 09:38 Active CBC WITH AUTO DIFF [HEME] Stat Lab 11/18/17 10:36 Ordered COMPREHENSIVE METABOLIC PN,CMP [CHEM] Stat Lab 11/18/17 10:36 Ordered URINALYSIS W/MICROSCOPIC [UA W/MICROSCOPIC] [URIN] Stat Lab 11/18/17 10:38 Ordered EKG 12 Lead [EK] Routine Ther 11/18/17 09:37 Ordered Meds: Medications Discontinued Medications Generic Name Dose Route Start Last Admin Trade Name Freq PRN Reason Stop Dose Admin Hydrocodone Bitart/Acetaminophen 1 tab 11/18/17 10:36 [place] 325-5 Mg PO 11/18/17 10:37 ONETIME ONE - Re-Assessments/Exams Free Text/Narrative Re-Assessment/Exam: 11/18/17 12:02 Patient afebrile, nontoxic appearing, vital signs stable, oxygen saturation 96% on 2 L nasal cannula. Pain has subsided. at bedside. Case discussed with Halima Moise, patient will be transfused and admitted inpatient. Departure - Departure Time of Disposition: 12:03 Disposition: Admitted As Inpatient 66 Condition: Fair Clinical Impression: Multiple myeloma, Hypoxic Anemia Qualifiers: Anemia type: bone marrow failure Bone marrow failure anemia type: unspecified bone marrow failure Qualified Code(s): D61.9 - Aplastic anemia, unspecified - Discharge Information Referrals: Ashanti Torres MD [Primary Care Provider] - - My Orders Last 24 Hours: My Active Orders 11/18/17 09:37 EKG 12 Lead [EK] Routine 11/18/17 09:38 EKG Documentation Completion [RC] ASDIRECTED 11/18/17 10:36 CBC WITH AUTO DIFF [HEME] Stat COMPREHENSIVE METABOLIC PN,CMP [CHEM] Stat 11/18/17 10:38 URINALYSIS W/MICROSCOPIC [UA W/MICROSCOPIC] [URIN] Stat - Assessment/Plan Admission H&P: Please use this note as an admission H&P Last 24 Hours: My Active Orders 11/18/17 09:37 EKG 12 Lead [EK] Routine 11/18/17 09:38 EKG Documentation Completion [RC] ASDIRECTED 11/18/17 10:36 CBC WITH AUTO DIFF [HEME] Stat COMPREHENSIVE METABOLIC PN,CMP [CHEM] Stat 11/18/17 10:38 URINALYSIS W/MICROSCOPIC [UA W/MICROSCOPIC] [URIN] Stat Assessment:: Anemia, hypoxia Plan: Inpatient admission
[2017-11-18] MEDS ORDERED: Ondansetron 4 MG Tab.DIS PO PRN (11:54)
[2017-11-18] MEDS ORDERED: Acetaminophen/HYDROcodone 325-5 MG Tab PO PRN (11:54)
[2017-11-18] MEDS ORDERED: Sodium Chloride 0.9% 10 ML Syringe FLUSH PRN (12:56)
[2017-11-18] MEDS ORDERED: Ondansetron 4 MG/2 ML SDV IVPUSH PRN (13:24)
[2017-11-18] MEDS ORDERED: Acetaminophen 325 MG Tab PO ONE (13:30)
[2017-11-18] MEDS ORDERED: Sodium Chloride 0.9% 250 ML IV SCH (13:30)
[2017-11-18] MEDS ORDERED: diphenhydrAMINE 25 MG Cap PO ONE (13:30)
[2017-11-18] MEDS: Pantoprazole 40 MG Vial IVPUSH SCH (13:38)
[2017-11-18] MEDS: Acetaminophen/HYDROcodone 325-5 MG Tab PO PRN (17:59)
[2017-11-18] MEDS: TIMOLOL EYEBOTH SCH (20:52)
[2017-11-18] MEDS: DORZOLAMIDE EYEBOTH SCH (20:52)
[2017-11-18] MEDS ORDERED: LATANOPROST 0.005% EYEBOTH SCH (21:00)
[2017-11-19 06:57] VITALS: BP 157/79
[2017-11-19] MEDS: Acetaminophen/HYDROcodone 325-5 MG Tab PO PRN (07:40)
[2017-11-19] MEDS: Pantoprazole 40 MG Vial IVPUSH SCH (07:52)
[2017-11-19] MEDS: DORZOLAMIDE EYEBOTH SCH (09:20)
[2017-11-19] MEDS: TIMOLOL EYEBOTH SCH (09:20)
--- NOTE | 2017-11-20 08:12 | DISCH ---
This is an 87-year-old female who was admitted to the hospital for observation yesterday 11/18/2017 with a hemoglobin of 6.0. She received 2 units of packed RBCs, and her hemoglobin has now improved to 8.9 this morning. She feels good and would like to go home. She has a history of multiple myeloma and initially came in with back pain. She has responded with hydrocodone; however, she does not like to take medications. Notably on her comprehensive metabolic panel yesterday, her BUN and creatinine were 45 and 2.5 respectively with a GFR of 18. I did give her an option today to repeat that to see if it has improved and she declined. Her home medications include some eyedrops that she takes for glaucoma. She did have a prescription for hydrocodone as well and she can resume this as well. I did ask her to please have a CBC monitored every 3 to 4 weeks so we can address any critically low hemoglobin values with transfusions of packed RBCs. She verbalizes understanding. FINAL DISCHARGE DIAGNOSES: 1. Anemia, improved with blood transfusion. 2. Multiple myeloma, stable. 3. Glaucoma, stable. 4. Back pain. She may take hydrocodone if she wishes to. /[id number]/MODL
== END 2017-11-19 10:08 | disposition home or self-care (01) | DRG 809 ==
LOC: KA.ED 09:15 → KA.MS 11:54
PROVIDERS: ADMIT Physician Assistant Surgical
PROC: 30233N1 Transfusion of Nonautologous Red Blood Cells into Peripheral Vein, Percutaneous Approach (ICD-10-PCS; principal; 2017-11-18)
DX: D61.9 Aplastic anemia, unspecified (principal); C90.00 Multiple myeloma not having achieved remission; R09.02 Hypoxemia; M54.89 Other dorsalgia; H40.9 Unspecified glaucoma; I10 Essential (primary) hypertension; M79.7 Fibromyalgia; K21.9 Gastro-esophageal reflux disease without esophagitis; G62.9 Polyneuropathy, unspecified; E03.9 Hypothyroidism, unspecified; F32.9 Major depressive disorder, single episode, unspecified; Z88.0 Allergy status to penicillin; Z79.899 Other long term (current) drug therapy; Z86.718 Personal history of other venous thrombosis and embolism; Z85.828 Personal history of other malignant neoplasm of skin
CPT/HCPCS: 36415; 36430; 80053; 85025; 86850; 86900; 86901; 86920; 86922; 93005; 99284; A9270-GY; C9113; J2405; J7050; P9016